=== PATIENT | female | born 1985 | race Caucasian/White ===

== ENCOUNTER 2016-10-10 14:06 | Emergency (ER) | payer BC ==
[~2016-10-10] VITALS: Ht 162.6 cm; Wt 64.8 kg
[2016-10-10 14:52] LABS: HEMATOCRIT 40.7 % (36.0-46.0); MCH 30.8 PG (29.0-34.0); MCHC 33.2 G/DL (30.0-36.0); MCV 92.9 FL (83-99); RBC DIS.WIDTH-CV 12.3 % (11.8-14.6); RBC DIS.WIDTH-SD 42.4 % (39-53); RED BLOOD COUNT 4.38 M/uL (3.80-5.20); WHITE BLOOD COUNT 7.2 K/uL (4.1-10.2)
[2016-10-10 15:02] LABS: CHLORIDE 106 mEq/L (99-109); SODIUM 138 mEq/L (136-147)
[2016-10-10 15:03] LABS: GLUCOSE 93 mg/dL (70-99)
[2016-10-10 15:05] LABS: ANION GAP 11 MEQ/L (2-14)
[2016-10-10 15:07] LABS: GFR ESTIMATE (CALCULATED) 55 mL/min/
[2016-10-10 15:08] LABS: UREA NITROGEN (BUN) 13 mg/dL (9-23)
[2016-10-10] MEDS ORDERED: NUVARING VAGIN1 EACH VG (15:38)
[2016-10-10 15:46] LABS: MEAN PLAT.VOLUME 10.4 uM^3 (9.5-12.4); PLATELET COUNT 285 K/uL (156-360)
[2016-10-10 16:41] LABS: QUANTITATIVE HCG < 4.0 MIU/ML
[2016-10-10] MEDS ORDERED: ANTIVERT25 MG PO (17:05)
[2016-10-10 19:14] VITALS: BP 123/76
[2016-10-11 09:51] LABS: LYME DISEASE SEROLOGY SCREEN NEGATIVE (NEGATIVE)
== END 2016-10-10 19:14 | disposition home or self-care (01) ==
LOC: EME 14:06
PROVIDERS: Physician Assistant
DX: R55 Syncope and collapse (principal); R42 Dizziness and giddiness; R11.0 Nausea
CPT/HCPCS: 70450; 70496; 70498; 71020; 80048; 84702; 85027; 86617 90; 86618; 86618 90; 93005; 99281; 99284; J7030